=== PATIENT | female | born 1975 | race African-American/Black ===

== ENCOUNTER 2023-01-14 01:00 | Emergency (ER) | payer BC, OTHER ==
[2023-01-14] MEDS ORDERED: SODIUM CHLORIDE 0.9% 500 ML INFUS.BAG IV ONE ×2 (01:27→04:04)
[2023-01-14] MEDS ORDERED: ONDANSETRON 4 MG/2 ML VIAL IVPB ONE (01:27)
[2023-01-14 01:43] VITALS: BP 150/88; PULSE 120; RESP 22; BMI 27.1
[2023-01-14] MEDS ORDERED: LORazepam 2 MG TABLET PO ONE (02:09)
[2023-01-14] MEDS ORDERED: ONDANSETRON 4 MG/2 ML VIAL ONE (02:22)
[2023-01-14] MEDS ORDERED: LORazepam 1 MG TABLET ONE (02:22)
[2023-01-14 03:03] LABS: BASO % 0.3 % (0-2.0); EOS % 0.2 % (0-4.5); HEMATOCRIT 41.5 % (32.4-45.2); HEMOGLOBIN 14.1 GM/dL (10.7-15.3); LYMPH % 12.9 % (8-40); MCH 29.8 pg (25.7-33.7); MEAN CELL VOLUME 87.5 fl (80-96); MEAN PLT VOLUME 7.6 fl (7.5-11.1); MONO % 3.1 % (3.8-10.2); NEUT % 83.5 % (42.8-82.8); PLATELET COUNT 365 10^3/uL (134-434); RBC 4.74 M/mm3 (3.60-5.2); RDW 13.6 % (11.6-15.6); WHITE BLOOD COUNT 6.9 K/mm3 (4.0-10.0)
[2023-01-14 03:15] LABS: POTASSIUM 4.7 mmol/L (3.5-5.1)
[2023-01-14 03:17] LABS: ALBUMIN 4.2 g/dl (3.4-5.0); CALCIUM 9.5 mg/dL (8.5-10.1)
[2023-01-14 03:18] LABS: BLOOD UREA NITROGEN 8.6 mg/dL (7-18)
[2023-01-14 03:22] LABS: BILIRUBIN,TOTAL 0.4 mg/dL (0.2-1); TOT PROT 8.9 g/dl (6.4-8.2)
== END 2023-01-14 06:09 | disposition home or self-care (01) ==
LOC: JER 01:00
PROC: 3E033GC Introduction of Other Therapeutic Substance into Peripheral Vein, Percutaneous Approach (ICD-10-PCS; principal; 2023-01-14)
DX: R11.2 Nausea with vomiting, unspecified (principal); F41.9 Anxiety disorder, unspecified; R00.0 Tachycardia, unspecified
CPT/HCPCS: 36415; 80053; 84484; 85025; 93005; 93010